=== PATIENT | female | born 1935 | race Hispanic/Latino ===

== ENCOUNTER 2017-04-08 02:13 | Emergency (ER) | payer MEDICARE ==
[2017-04-08 02:27] VITALS: BP 175/93; RESP 18; TEMP 98.3; O2SAT 98
[2017-04-08] MEDS ORDERED: Oxycodone/Acetaminophen 5/325 mg Tab PO STA (03:15)
--- NOTE | 2017-04-08 03:18 | ED PDOC ---
HPI: Chest Pain Time Seen by Provider: 04/08/17 02:44 Chief Complaint (Nursing): Chest Pain Chief Complaint (Provider): Chest Pain History Per: Patient History/Exam Limitations: no limitations Onset/Duration Of Symptoms: Days (x1) Current Symptoms Are (Timing): Still Present Additional Complaint(s): 81 year old female presents to ED with complaints of intermittent left-sided chest pain x1 day and has a past medical history of Hypertension. Notes resolved pain to her left upper back region yesterday. (-) cough, Shortness of breath, or leg swelling. PCP: Wayne Ruelas Past Medical History Reviewed: Historical Data, Nursing Documentation, Vital Signs Vital Signs: Last Vital Signs Temp 98.3 F 04/08/17 02:23 Pulse 90 04/08/17 05:18 Resp 18 04/08/17 02:23 BP 175/93 H 04/08/17 02:23 Pulse Ox 98 04/08/17 05:18 - Medical History PMH: Anemia, Arthritis, HTN, Hypercholesterolemia Denies: Chronic Kidney Disease - Surgical History Surgical History: No Surg Hx - Family History Family History: States: Hypertension - Living Arrangements Living Arrangements: With Family - Social History Current smoker - smoking cessation education provided: No Ex-Smoker (has not smoked in the last 12 months): No Alcohol: None Drugs: Denies - Home Medications Home Medications: Ambulatory Orders Medication Instructions Recorded Atorvastatin [Lipitor] 10 mg PO DAILY 04/14/16 Pilocarpine [Salagen Tab] 5 mg PO QID 04/14/16 Sodium Chloride [Sodium Chloride] 1 gm PO BID 04/14/16 amLODIPine [Norvasc] 5 mg PO DAILY 04/14/16 Valacyclovir HCl [Valacyclovir] 1,000 mg PO Q8 7 Days tablet 04/08/17 traMADol [Ultram] 50 mg PO TID PRN #15 tab 04/08/17 - Allergies Allergies/Adverse Reactions: Allergies Allergy/AdvReac Type Severity Reaction Status Date / Time Penicillins Allergy RASH Verified 08/09/16 12:28 SHONNA Risk Score for UA/NSTEMI - SHONNA Risk Score Age > 64: YES 3 or more CAD Risk Factors: NO Known CAD (Stenosis greater than 50%): NO Aspirin use in past 7 days: NO Severe Angina: NO EKG ST changes greater than 0.5mm: NO Positive Cardiac Marker: NO SHONNA Score: 1 Risk %: 5% Curb-65 Severity Score - CURB-65 Severity Score Confusion: No Respiratory Rate greater than/equal to 30: No Systolic BP <90 or Diastolic BP less than/equal 60mmHg: No Age >64: Yes Curb-65 Score: 1 Percentage 30-day mortality: 2.7% Wells Criteria for PE - Wells Criteria for Pulmonary Embolism Clinical Signs and Symptoms of DVT: No P.E is #1 Diagnosis, or Equally Likely: No Heart Rate >100: No Immobilization at least 3 days;Surgery previous 4 weeks: No Previous, objectively diagnosed PE or DVT: No Hemoptysis: No Malignancy w/treatment within 6 months, or palliative: No Total Score: 0 Review of Systems ROS Statement: Except As Marked, All Systems Reviewed And Found Negative Constitutional: Negative for: Fever Cardiovascular: Positive for: Chest Pain Respiratory: Negative for: Cough, Shortness of Breath Musculoskeletal: Positive for: Back Pain (left upper back (resolved)). Negative for: Other ((-) leg swelling) Physical Exam - Reviewed Nursing Documentation Reviewed: Yes Vital Signs Reviewed: Yes - Physical Exam Appears: Positive for: Non-toxic, No Acute Distress. Negative for: Uncomfortable Head Exam: Positive for: ATRAUMATIC Skin: Positive for: Warm, Dry, Rash (multiple lesions: vesicular and macular pash. Confluent. Present on left sided of chest under breast as well as on left upper back.). Negative for: Normal Color Eye Exam: Positive for: EOMI, Normal appearance, PERRL ENT: Positive for: Normal ENT Inspection Neck: Positive for: Normal, Painless ROM Cardiovascular/Chest: Positive for: Regular Rate, Rhythm. Negative for: Murmur , Tachycardia Respiratory: Positive for: Normal Breath Sounds. Negative for: Respiratory Distress Gastrointestinal/Abdominal: Positive for: Normal Exam, Soft. Negative for: Tenderness Back: Positive for: Normal Inspection Extremity: Positive for: Normal ROM. Negative for: Deformity Neurologic/Psych: Positive for: Alert, Oriented. Negative for: Motor/Sensory Deficits - Laboratory Results Result Diagrams: 04/08/17 03:10 04/08/17 03:10 - ECG ECG: Positive for: Interpreted By Me, Viewed By Me ECG Rhythm: Positive for: Normal QRS, Normal ST Segment, Sinus Rhythm, Nonspecific Changes Rate: 90 O2 Sat by Pulse Oximetry: 98 (RA) Pulse Ox Interpretation: Normal - Radiology X-Ray: Interpreted by Me, Viewed By Me X-Ray Interpretation: No Acute Disease Medical Decision Making Medical Decision Makin Initial impression: chest pain with rash on chest wall DDx: shingles Initial plan: * EKG * Labs * Trop I * CXR Scribe Attestation: Documented by Rachana Hays acting as a scribe for Staci Fitzpatrick MD. Scribe Attestation: All medical record entries made by the Scribe were at my direction and personally dictated by me. I have reviewed the chart and agree that the record accurately reflects my personal performance of the history, physical exam, medical decision making, and the department course for this patient. I have also personally directed, reviewed, and agree with the discharge instructions and disposition. Disposition - Clinical Impression Clinical Impression: Chest pain, Shingles - Patient ED Disposition Is Patient to be Admitted: No Doctor Will See Patient In The: Office Counseled Patient/Family Regarding: Studies Performed, Diagnosis, Need For Followup - Disposition Referrals: Wayne Ruelas MD [Primary Care Provider] - Disposition: Routine/Home Disposition Time: 05:16 Condition: GOOD Additional Instructions: Take your medications as instructed. Follow up with your PCP in 2-3 days. Prescriptions: traMADol [Ultram] 50 mg PO TID PRN #15 tab PRN Reason: Pain, Severe (8-10) Valacyclovir HCl [Valacyclovir] 1,000 mg PO Q8 7 Days tablet Instructions: Chest Pain (ED), Shingles (ED) Forms: [employer] (Bulgarian)
[2017-04-08 03:23] LABS: BASO % 0.3 % (0.0-2.0); EOS # 0.1 K/uL (0.0-0.7); EOS % 0.9 % (0.0-4.0); HEMATOCRIT 33.5 % (34.0-47.0); LYMPH % 15.5 % (20.0-40.0); MEAN CELL VOLUME 91.1 fl (81.0-99.0); MEAN CORPUSCULAR HEMOGLOBIN 31.6 pg (27.0-31.0); MEAN CORPUSCULAR HGB CONC 34.7 g/dL (33.0-37.0); MEAN PLATELET VOLUME 7.8 fl (7.2-11.7); MONO # 0.6 K/uL (0.0-0.8); MONO % 9.7 % (0.0-10.0); NEUT # 4.9 K/uL (1.8-7.0); NEUT % 73.6 % (50.0-75.0); NRBC % 0.1 % (0.0-0.0); RED CELL DISTRIBUTION WIDTH 12.4 % (11.5-14.5); WHITE BLOOD COUNT 6.6 K/uL (4.8-10.8)
[2017-04-08 04:01] VITALS: PULSE 90
[2017-04-08] MEDS ORDERED: DiphenhydrAMINE 50 mg/ml Inj IV STA (04:06)
[2017-04-08 04:36] LABS: BLOOD UREA NITROGEN 18 mg/dl (7-17); CALCIUM 10.1 mg/dL (8.4-10.2); CARBON DIOXIDE 21 mmol/L (22-30); CHLORIDE 93 mmol/L (98-107); GFR AFRICAN-AMERICAN > 60; GLUCOSE,RANDOM 120 mg/dL (65-105); POTASSIUM 4.3 MMOL/L (3.6-5.0); SODIUM 130 mmol/l (132-148)
--- NOTE | 2017-04-08 10:49 | RAD ---
PROCEDURE: CHEST RADIOGRAPH, 1 VIEW HISTORY: chest pain COMPARISON: 06/14/2016. FINDINGS: LUNGS: Clear. PLEURA: No pneumothorax or pleural fluid seen. CARDIOVASCULAR: No radiographic findings to suggest acute or significant cardiovascular disease. OSSEOUS STRUCTURES: No significant abnormalities. VISUALIZED UPPER ABDOMEN: Normal. OTHER FINDINGS: None. IMPRESSION: No active disease. No acute/significant interval changes. Please note: No preliminary report/ innterpretation of this examination provided by emergency department personnel.
--- NOTE | 2017-04-09 09:42 | CARD ---
APPROVED REPORT EKG Measurement Heart [id number] <Conclusion> Normal sinus rhythm Moderate voltage criteria for LVH, may be normal variant Nonspecific ST abnormality Abnormal ECG
== END 2017-04-08 05:36 | disposition home or self-care (01) ==
LOC: H.ER 02:13
DX: R07.9 Chest pain, unspecified (principal); B02.9 Zoster without complications; I10 Essential (primary) hypertension
CPT/HCPCS: 71010; 80048; 84484; 85025; 93005; 96374; 96375; 99283; J1200; J2405; J2930

== ENCOUNTER 2018-04-22 08:18 | Day surgery (SDC) | payer MEDICARE ==
[2018-04-22 09:34] VITALS: BMI 18.8
[2018-04-22] MEDS ORDERED: Tetracaine 0.5% Ophth 2 ML BOTTLE ONE (09:39)
[2018-04-22] MEDS ORDERED: Maxitrol Opht Susp ONE (09:39)
[2018-04-22] MEDS ORDERED: CA CL/K CL/NA CL 500 ML IR ONE (09:40)
[2018-04-22] MEDS ORDERED: STERILE IRRIGATING SOLUTION 30 ML IR ONE (09:40)
[2018-04-22] MEDS ORDERED: EPINEPHrine 1 mg/ml (1:1000) Inj ONE (09:40)
[2018-04-22] MEDS ORDERED: Pilocarpine 1% Opht Soln ONE (09:40)
[2018-04-22] MEDS ORDERED: Lidocaine 1% 20 MG/2 ML PF AMP ONE (09:40)
[2018-04-22] MEDS ORDERED: Chondroitin/Hyaluronate Opth Syringe KIT (0.55 ml-0.5 ml) IO ONE (09:41)
[2018-04-22] MEDS ORDERED: Povidone Iodine 5% Opht SOLUTION ONE (09:41)
[2018-04-22] MEDS ORDERED: STERILE IRRIGATING SOLUTION 15 ML IR ONE (09:41)
[2018-04-22] MEDS ORDERED: Carbachol 0.01% IO ONE (09:41)
[2018-04-22] MEDS ORDERED: Phenylephrine 2.5% Opht Soln OD ONE ×2 (09:42→10:00)
[2018-04-22] MEDS ORDERED: Flurbiprofen 0.03% Opht SOLN OD ONE (09:50)
[2018-04-22] MEDS ORDERED: Tropicamide 1% Opht 150 DROP/15 ML OD ONE (09:50)
[2018-04-22] MEDS ORDERED: Lactated Ringer's 1,000 ML IV ONE ×2 (10:00→11:48)
[2018-04-22 10:59] VITALS: RESP 18
[2018-04-22] MEDS ORDERED: Midazolam 2 MG/2 ML VIAL ONE (11:37)
[2018-04-22 13:59] VITALS: BP 132/89; PULSE 68; TEMP 97.1; O2SAT 99
--- NOTE | 2018-04-23 12:03 | OP ---
PROCEDURE DATE: 04/22/18 SURGEON: JOURDAN BOOTH MD ANESTHESIOLOGIST:MD LAUREL,BERNADETTE Jones/MD NORIS TSANG ANESTHESIA: LOCAL / IV SEDATION PREOPERATIVE DIAGNOSIS: CATARACT RIGHT EYE. POSTOPERATIVE DIAGNOSIS: CATARACT RIGHT EYE. OPERATION: CLEAR CORNEAL PHACOEMULSIFICATION WITH LENS IMPLANT RIGHT EYE. PREPARATION AND PROCEDURE: After the patient was prepped and draped in the usual manner for sterile ophthalmic surgery, local IV sedation was administered; eye seals were applied to the upper and lower lid margins and an adult wire lid speculum was placed within the lids. Under microsurgical control, a two-step clear corneal incision was made into the anterior chamber. The initial incision was perpendicular to the corneal plane. The second incision with the keratome was placed at a 45-degree angle to the first incision. One cc of one percent Xylocaine MPF was instilled into the anterior chamber to achieve proper intraocular anesthesia. At this time, the Viscoelastic was injected into the anterior chamber for protection of the endothelium and for maintenance of the chamber depth. A 360-degree continuous curvilinear capsulorrhexis was performed using a pre-bent 25-gauge needle. Hydrodissection and hydrodelineation were performed using a Lemon cannula and balanced salt solution. Utilizing the tip of the Lemon cannula, the nucleus was rotated freely within the capsular bag. A standard one-handed phacoemulsification was utilized at this time for sculpting and rotating of the nucleus. The nucleus was fragmented in its entirety and aspirated without any consequence. A standard I&A was carried out for the residual cortical material. No residual material was noted within the capsular bag. The posterior capsule was noted to be clear. Additional Viscoelastic was injected into the capsular bag in preparation for lens implantation. After this has been satisfactorily achieved the intraocular lens injected through the corneal incision into the capsular bag. The intraocular lens was manipulated until it was properly oriented and the Viscoelastic was evacuated from the capsular bag and anterior chamber. The anterior chamber was reformed with balanced salt solution. The corneal incision was irrigated with BSS. The intraocular pressure was found to be within normal limits. This terminated the procedure. The speculum and lid drapes were removed. TobraDex ophthalmic suspension and Pilocarpine 1% drops one drop was applied to the eye. POSTOPERATIVE CONDITION: The patient was brought to the Post anesthesia Recovery area with stable vital signs. DJOURDAN ADAM MD
== END 2018-04-22 13:45 | disposition home or self-care (01) ==
LOC: H.OPSURG 08:18
PROVIDERS: ATTEND Ophthalmology
DX: H25.21 Age-related cataract, morgagnian type, right eye (principal); J44.9 Chronic obstructive pulmonary disease, unspecified; E78.5 Hyperlipidemia, unspecified; I10 Essential (primary) hypertension; K21.9 Gastro-esophageal reflux disease without esophagitis; D64.9 Anemia, unspecified
CPT/HCPCS: 66984; J0171; J2250; J7120; V2632

== ENCOUNTER 2018-05-13 09:46 | Day surgery (SDC) | payer MEDICARE ==
[2018-05-13 09:42] VITALS: BMI 18.8
[2018-05-13] MEDS ORDERED: Tropicamide 1% Opht 150 DROP/15 ML LEFTEYE SCH (10:15)
[2018-05-13] MEDS ORDERED: Flurbiprofen 0.03% Opht SOLN OS SCH (10:15)
[2018-05-13] MEDS ORDERED: Phenylephrine 2.5% Opht Soln OD ONE (10:16)
[2018-05-13] MEDS ORDERED: Lactated Ringer's 1,000 ML IV ONE (10:29)
[2018-05-13] MEDS ORDERED: Tropicamide 1% Opht 150 DROP/15 ML OS ONE (10:30)
[2018-05-13] MEDS ORDERED: Maxitrol Opht Susp ONE (11:49)
[2018-05-13] MEDS ORDERED: Tetracaine 0.5% Ophth 2 ML BOTTLE ONE (11:49)
[2018-05-13] MEDS ORDERED: EPINEPHrine 1 mg/ml (1:1000) Inj ONE (11:49)
[2018-05-13] MEDS ORDERED: Lidocaine 1% 20 MG/2 ML PF AMP ONE (11:49)
[2018-05-13] MEDS ORDERED: Chondroitin/Hyaluronate Opth Syringe KIT (0.55 ml-0.5 ml) IO ONE ×2 (11:50→12:49)
[2018-05-13] MEDS ORDERED: STERILE IRRIGATING SOLUTION 15 ML IR ONE (11:50)
[2018-05-13] MEDS ORDERED: CA CL/K CL/NA CL 500 ML IR ONE (11:50)
[2018-05-13] MEDS ORDERED: Pilocarpine 1% Opht Soln ONE (11:50)
[2018-05-13] MEDS ORDERED: STERILE IRRIGATING SOLUTION 30 ML IR ONE (11:50)
[2018-05-13] MEDS ORDERED: Povidone Iodine 5% Opht SOLUTION ONE (11:51)
[2018-05-13] MEDS ORDERED: Carbachol 0.01% IO ONE ×2 (11:51→12:49)
[2018-05-13] MEDS ORDERED: Midazolam 2 MG/2 ML VIAL ONE ×2 (12:06→12:52)
[2018-05-13] MEDS ORDERED: BSS 15 ML SOL IR ONE (12:49)
[2018-05-13] MEDS ORDERED: Lidocaine 1% Inj (20ml) TP ONE (12:49)
[2018-05-13] MEDS ORDERED: Neomycin/Polymyxin B Sulfates Sol for Irrigation 1 ml Amp IR ONE (12:49)
[2018-05-13] MEDS ORDERED: Pilocarpine 1% Opht Soln OD ONE (12:49)
[2018-05-13] MEDS ORDERED: Tetracaine 0.5% Ophth 2 ML BOTTLE OU ONE (12:49)
[2018-05-13] MEDS ORDERED: EPINEPHrine 1 mg/ml (1:1000) Inj IV ONE (12:49)
[2018-05-13] MEDS ORDERED: Povidone Iodine 5% Opht SOLUTION OU ONE (12:49)
[2018-05-13 13:45] VITALS: RESP 18
[2018-05-13 14:05] VITALS: O2SAT 100
[2018-05-13 15:01] VITALS: BP 148/78; PULSE 72; TEMP 97.6
--- NOTE | 2018-05-14 07:24 | OP ---
PROCEDURE DATE: 05/13/2018 SURGEON: JOURDAN BOOTH MD ANESTHESIOLOGIST: NORIS TSANG MD ANESTHESIA: LOCAL / IV SEDATION PREOPERATIVE DIAGNOSIS: CATARACT LEFT EYE. POSTOPERATIVE DIAGNOSIS: CATARACT LEFT EYE. OPERATION: CLEAR CORNEAL PHACOEMULSIFICATION WITH LENS IMPLANT LEFT EYE. PREPARATION AND PROCEDURE: After the patient was prepped and draped in the usual manner for sterile ophthalmic surgery, local IV sedation was administered; eye seals were applied to the upper and lower lid margins and an adult wire lid speculum was placed within the lids. Under microsurgical control, a two-step clear corneal incision was made into the anterior chamber. The initial incision was perpendicular to the corneal plane. The second incision with the keratome was placed at a 45-degree angle to the first incision. One cc of one percent Xylocaine MPF was instilled into the anterior chamber to achieve proper intraocular anesthesia. At this time, the Viscoelastic was injected into the anterior chamber for protection of the endothelium and for maintenance of the chamber depth. A 360-degree continuous curvilinear capsulorrhexis was performed using a pre-bent 25-gauge needle. Hydrodissection and hydrodelineation were performed using a Lemon cannula and balanced salt solution. Utilizing the tip of the Lemon cannula, the nucleus was rotated freely within the capsular bag. A standard one-handed phacoemulsification was utilized at this time for sculpting and rotating of the nucleus. The nucleus was fragmented in its entirety and aspirated without any consequence. A standard I&A was carried out for the residual cortical material. No residual material was noted within the capsular bag. The posterior capsule was noted to be clear. Additional Viscoelastic was injected into the capsular bag in preparation for lens implantation. After this has been satisfactorily achieved the intraocular lens injected through the corneal incision into the capsular bag. The intraocular lens was manipulated until it was properly oriented and the Viscoelastic was evacuated from the capsular bag and anterior chamber. The anterior chamber was reformed with balanced salt solution. The corneal incision was irrigated with BSS. The intraocular pressure was found to be within normal limits. This terminated the procedure. The speculum and lid drapes were removed. TobraDex ophthalmic suspension and Pilocarpine 1% drops one drop was applied to the eye. POSTOPERATIVE CONDITION: The patient was brought to the Post anesthesia Recovery area with stable vital signs. DJOURDAN ADAM MD
== END 2018-05-13 15:15 | disposition home or self-care (01) ==
LOC: EDBD → H.OPSURG 09:46 → EDUNIT# 10:00 → H.OPSURG 15:15
PROVIDERS: ATTEND Ophthalmology
DX: H25.812 Combined forms of age-related cataract, left eye (principal); J44.9 Chronic obstructive pulmonary disease, unspecified; E78.5 Hyperlipidemia, unspecified; I10 Essential (primary) hypertension; K21.9 Gastro-esophageal reflux disease without esophagitis
CPT/HCPCS: 66984; J0171; J2250; J7120; V2632

== ENCOUNTER 2018-10-16 00:05 | Observation (INO) | payer MEDICARE ==
[2018-10-16 00:24] VITALS: BMI 14.6
[2018-10-16] MEDS ORDERED: Sodium Chloride 0.9% 1,000 ML IV STA (01:18)
[2018-10-16 01:42] LABS: BASO % 0.4 % (0.0-2.0); EOS % 0.1 % (0.0-4.0); LYMPH # 0.7 K/uL (1.0-4.3); LYMPH % 8.1 % (20.0-40.0); MEAN CELL VOLUME 87.2 fl (81.0-99.0); MEAN CORPUSCULAR HEMOGLOBIN 29.1 pg (27.0-31.0); MEAN CORPUSCULAR HGB CONC 33.3 g/dL (33.0-37.0); MEAN PLATELET VOLUME 7.4 fl (7.2-11.7); MONO # 0.4 K/uL (0.0-0.8); MONO % 4.4 % (0.0-10.0); NEUT # 7.6 K/uL (1.8-7.0); PLATELET COUNT 413 K/uL (130-400); RBC 2.76 Mil/uL (3.80-5.20); WHITE BLOOD COUNT 8.7 K/uL (4.8-10.8)
[2018-10-16 01:49] LABS: BLOOD UREA NITROGEN 20 mg/dl (7-17); CALCIUM 8.4 mg/dL (8.4-10.2); GFR NON-AFRICAN AMERICAN > 60
[2018-10-16 02:31] LABS: ANISOCYTOSIS SLIGHT; BANDS 1 % (0-2); LYMPHOCYTE 10 % (20-50); MONOCYTE 7 % (0-10); NEUTROPHIL 82 % (42-75); PLATELET ESTIMATE NORMAL (NORMAL); POIKILOCYTOSIS SLIGHT; TOTAL CELLS COUNTED 100
[2018-10-16] MEDS ORDERED: Potassium Chloride 20 mEq ER Tab PO ONE ×2 (02:46→03:05)
[2018-10-16] MEDS ORDERED: Potassium CL 10 MEQ/50 ML 50 ML ONE ×2 (03:05→04:22)
[2018-10-16] MEDS: Potassium CL 10 MEQ/50 ML 50 ML IVPB SCH ×2 (03:18→04:27)
--- NOTE | 2018-10-16 03:43 | CP.PCM.HP ---
<Caroline Calhoun - Last Filed: 10/16/18 03:51> History of Present Illness - History of Present Illness History of Present Illness: This is 83 y/o F with PMH of HTN/HLD, dementia, chronic anemia and hyponatremia admitted to [facility] for eval and treatment of hypokalemia and lightheadedness. Patient presents to ER c/o 2 days hx of intermittent nausea and dizziness/Lightheadedness. Son reports progressively worsening dementia, and Poor PO intake. Denies any vomiting, fever, diarrhea, blurred vision, ringing in ears, chest pain, SOB, abdominal pain, dysuria or weakness. PMD: Kozel PMH: HTN/HLD, dementia, chronic anemia and hyponatremia SHx: None Allergies: PCN Medications: As per med rec Family Hx: reviewed, no relevant findings Social Hx: Lives tobacco EtOH Surrogate Decision Maker: david Durbin ROS: As per HPI ER Course: VS: Afebrile, 172/76, HR 70, spo2 97% CBC: no wbc, h/h 02/28 BMP: K+ 2.8 Present on Admission - Present on Admission Any Indicators Present on Admission: No Review of Systems - Constitutional Constitutional: absent: Daytime Sleepiness, Lethargy, Weight Loss, Weakness - EENT Eyes: absent: Blurred Vision Ears: Dizziness. absent: Ear Pain, Tinnitus, Disequilibrium Nose/Mouth/Throat: absent: Nasal Congestion, Dysphagia, Sore Throat - Breasts Breasts: absent: Skin Changes - Cardiovascular Cardiovascular: absent: Chest Pain - Respiratory Respiratory: absent: Cough, Dyspnea, Hemoptysis - Gastrointestinal Gastrointestinal: Nausea. absent: Abdominal Pain, Diarrhea, Heartburn, Vomiting - Genitourinary Genitourinary: absent: Change in Urinary Stream, Dysuria - Musculoskeletal Musculoskeletal: absent: Muscle Cramps, Muscle Weakness, Neck Pain, Numbness, Stiffness, Tingling - Integumentary Integumentary: absent: Bleeding Lesions - Neurological Neurological: Dizziness. absent: Sensory Deficit, Syncope, Tingling, Tremor, Vertigo, Weakness, Other Visual Disturbances - Psychiatric Psychiatric: absent: Anxiety, Depression - Endocrine Endocrine: absent: Change in Body Appearance - Hematologic/Lymphatic Hematologic: absent: Easy Bleeding Past Patient History - Past Medical History & Family History Past Medical History?: Yes - Past Social History Smoking Status: Never Smoked - CARDIAC Hx Cardiac Disorders: Yes Hx Hypercholesterolemia: Yes Hx Hypertension: Yes - PULMONARY Hx Respiratory Disorders: No - NEUROLOGICAL Hx Syncope: Yes Other/Comment: cognitive decline - HEENT Hx HEENT Problems: No - RENAL Hx Chronic Kidney Disease: No - ENDOCRINE/METABOLIC Hx Endocrine Disorders: Yes Other/Comment: Hx hyponatremia - HEMATOLOGICAL/ONCOLOGICAL Hx Anemia: Yes - INTEGUMENTARY Other/Comment: Dystrophic nails - MUSCULOSKELETAL/RHEUMATOLOGICAL Hx Arthritis: Yes Hx Falls: No Other/Comment: Sicca Syndrome - GASTROINTESTINAL Hx Colitis: Yes Hx Gastroesophageal Reflux: Yes - GENITOURINARY/GYNECOLOGICAL Hx Genitourinary Disorders: No - PSYCHIATRIC Hx Psychophysiologic Disorder: No Hx Substance Use: No - SURGICAL HISTORY Hx Surgeries: No - ANESTHESIA Hx Anesthesia: No Hx Anesthesia Reactions: No Meds Allergies/Adverse Reactions: Allergies Allergy/AdvReac Type Severity Reaction Status Date / Time codeine Allergy VOMITING Verified 10/16/18 00:23 Penicillins Allergy RASH Verified 10/16/18 00:23 Physical Exam - Constitutional Appears: No Acute Distress - Head Exam Head Exam: ATRAUMATIC, NORMAL INSPECTION, NORMOCEPHALIC - Eye Exam Eye Exam: EOMI, Normal appearance, PERRL Pupil Exam: NORMAL ACCOMODATION - ENT Exam ENT Exam: Mucous Membranes Moist - Neck Exam Neck exam: Positive for: Normal Inspection - Respiratory Exam Respiratory Exam: Clear to Auscultation Bilateral, NORMAL BREATHING PATTERN. absent: Rhonchi, Wheezes - Cardiovascular Exam Cardiovascular Exam: REGULAR RHYTHM, +S1, +S2 - GI/Abdominal Exam GI & Abdominal Exam: Normal Bowel Sounds, Soft. absent: Tenderness - Extremities Exam Extremities exam: Positive for: normal inspection, pedal pulses present. Negative for: tenderness - Back Exam Back exam: NORMAL INSPECTION. absent: CVA tenderness (L), CVA tenderness (R) - Neurological Exam Neurological exam: Alert, CN II-XII Intact, Oriented x3, Reflexes Normal - Psychiatric Exam Psychiatric exam: Normal Affect - Skin Skin Exam: Dry, Intact, Normal Color, Warm Results - Vital Signs Recent Vital Signs: Last Vital Signs Temp 98.3 F 10/16/18 00:23 Pulse 70 10/16/18 00:23 Resp 18 10/16/18 00:23 BP 172/76 H 10/16/18 00:23 Pulse Ox 97 10/16/18 00:23 - Labs Result Diagrams: 10/16/18 01:30 04/11/19 01:30 Labs: Laboratory Results - last 24 hr 10/16/18 10/16/18 10/16/18 00:33 01:30 01:30 WBC 8.7 RBC 2.76 L Hgb 8.0 L D Hct 24.1 L MCV 87.2 D MCH 29.1 MCHC 33.3 RDW 14.0 Plt Count 413 H D MPV 7.4 Neut % (Auto) 87.0 H Lymph % (Auto) 8.1 L [place] % (Auto) 4.4 Eos % (Auto) 0.1 Baso % (Auto) 0.4 Neut # (Auto) 7.6 H Lymph # (Auto) 0.7 L [place] # (Auto) 0.4 Eos # (Auto) 0.0 Baso # (Auto) 0.0 Neutrophils % (Manual) 82 H Band Neutrophils % 1 Lymphocytes % (Manual) 10 L Monocytes % (Manual) 7 Platelet Estimate Normal Poikilocytosis (manual Slight Anisocytosis (manual) Slight Sodium 138 Potassium 2.8 L Chloride 102 Carbon Dioxide 28 Anion Gap 11 BUN 20 H Creatinine 0.6 L Est GFR ( Amer) > 60 Est GFR (Non-Af Amer) > 60 POC Glucose (mg/dL) 175 H Random Glucose 145 H Calcium 8.4 Phosphorus 3.0 Magnesium 1.8 Assessment & Plan - Assessment and Plan (Free Text) Assessment: A/P: 83 y/o F with PMH of HTN/HLD, dementia, chronic anemia and hyponatremia admitted to [facility] for eval and treatment of hypokalemia and lightheadedness. Hypokalemia, Acute - 10mg IV KCL x 2 - 40mg PO KCL - Repeat BMP in morning - Replace as needed Lightheadedness, acute, 2/2 dehydration and poor PO intake - C/w IVF - Neuro checks - F/u EKG HTN, Chronic - C/w home medications as ordered HLD, Chronic, Controlled - C/w home meds DVT PPX - SCD/Lovenox SC daily Case discussed with Dr. Carbone <Eliseo Carbone - Last Filed: 10/16/18 04:32> Results - Vital Signs Recent Vital Signs: Last Vital Signs Temp 98.3 F 10/16/18 00:23 Pulse 70 10/16/18 00:23 Resp 18 10/16/18 00:23 BP 172/76 H 10/16/18 00:23 Pulse Ox 97 10/16/18 04:18 - Labs Result Diagrams: 10/16/18 01:30 10/16/18 01:30 Labs: Laboratory Results - last 24 hr 10/16/18 10/16/18 10/16/18 00:33 01:30 01:30 WBC 8.7 RBC 2.76 L Hgb 8.0 L D Hct 24.1 L MCV 87.2 D MCH 29.1 MCHC 33.3 RDW 14.0 Plt Count 413 H D MPV 7.4 Neut % (Auto) 87.0 H Lymph % (Auto) 8.1 L [place] % (Auto) 4.4 Eos % (Auto) 0.1 Baso % (Auto) 0.4 Neut # (Auto) 7.6 H Lymph # (Auto) 0.7 L [place] # (Auto) 0.4 Eos # (Auto) 0.0 Baso # (Auto) 0.0 Neutrophils % (Manual) 82 H Band Neutrophils % 1 Lymphocytes % (Manual) 10 L Monocytes % (Manual) 7 Platelet Estimate Normal Poikilocytosis (manual Slight Anisocytosis (manual) Slight Sodium 138 Potassium 2.8 L Chloride 102 Carbon Dioxide 28 Anion Gap 11 BUN 20 H Creatinine 0.6 L Est GFR ( Amer) > 60 Est GFR (Non-Af Amer) > 60 POC Glucose (mg/dL) 175 H Random Glucose 145 H Calcium 8.4 Phosphorus 3.0 Magnesium 1.8 Assessment & Plan - Assessment and Plan (Free Text) Plan: History as documented by resident was reviewed with patient and resident. I performed the rojas elements of exam and agree with the above findings. Diagnostics were reviewed and medical decision making and plan of care performed by me: 83 y/o CF with PMH of HTN/HLD, dementia, chronic anemia and hyponatremia p/w mal aise, nausea, poor appetite and feeling lightheaded. Was found to have K of 2.8. On exam looks dry, S1/S2, RRR, lungs clear b/l. Of note her anemia has significantly worsened as compared to last April (Hb 10-11->8). Will give IVF and K supplement and will monitor K closely. Needs close follow up and out patient work up for her anemia.
--- NOTE | 2018-10-16 04:10 | ED PDOC ---
HPI:Nausea, Vomiting, Diarrhea Time Seen by Provider: 10/16/18 00:46 Chief Complaint (Nursing): GI Problem Chief Complaint (Provider): Nausea, Dizziness History Per: Patient History/Exam Limitations: no limitations Onset/Duration Of Symptoms: Days (x 3) Current Symptoms Are (Timing): Still Present Associated Symptoms: Nausea, Other (dizziness) Additional Complaint(s): 83 year old female with a history of HTN, high cholesterol and hyponatremia for evaluation of nausea and dizziness for the past few days. Patient reports she recently has been forgetting to eat and feels nauseous. Prior to arrival, she visited her neighbor's house and they called EMS. Patient denies headache, chest pain and shortness of breath. PMD: Dr. Ruelas Past Medical History Reviewed: Historical Data, Nursing Documentation, Vital Signs Vital Signs: Last Vital Signs Temp 98.3 F 10/16/18 00:23 Pulse 70 10/16/18 00:23 Resp 18 10/16/18 00:23 BP 172/76 H 10/16/18 00:23 Pulse Ox 97 10/16/18 00:23 - Medical History PMH: Anemia, Arthritis, HTN, Hypercholesterolemia Denies: Chronic Kidney Disease - Surgical History Surgical History: No Surg Hx - Family History Family History: States: Hypertension - Home Medications Home Medications: Ambulatory Orders Medication Instructions Recorded Atorvastatin [Lipitor] 10 mg PO DAILY 04/14/16 Pilocarpine [Salagen Tab] 5 mg PO QID 04/14/16 Sodium Chloride 1 gm PO BID 04/14/16 amLODIPine [Norvasc] 5 mg PO DAILY 04/14/16 - Allergies Allergies/Adverse Reactions: Allergies Allergy/AdvReac Type Severity Reaction Status Date / Time codeine Allergy VOMITING Verified 10/16/18 00:23 Penicillins Allergy RASH Verified 10/16/18 00:23 Review of Systems ROS Statement: Except As Marked, All Systems Reviewed And Found Negative Constitutional: Negative for: Fever Cardiovascular: Negative for: Chest Pain Respiratory: Negative for: Shortness of Breath Gastrointestinal: Positive for: Nausea. Negative for: Vomiting Neurological: Positive for: Dizziness. Negative for: Headache Physical Exam - Reviewed Nursing Documentation Reviewed: Yes Vital Signs Reviewed: Yes - Physical Exam Appears: Positive for: No Acute Distress (cachectic and weak appearing) Head Exam: Positive for: ATRAUMATIC, NORMOCEPHALIC Skin: Positive for: Warm, Dry. Negative for: Rash Eye Exam: Positive for: EOMI, Normal appearance, PERRL Neck: Positive for: Normal, Painless ROM, Supple Cardiovascular/Chest: Positive for: Regular Rate, Rhythm. Negative for: Murmur Respiratory: Positive for: Normal Breath Sounds. Negative for: Respiratory Distress Gastrointestinal/Abdominal: Positive for: Normal Exam, Soft. Negative for: Tenderness Back: Positive for: Normal Inspection. Negative for: L CVA Tenderness, R CVA Tenderness Extremity: Positive for: Normal ROM (x 4). Negative for: Deformity Neurological/Psych: Positive for: Awake, Alert, Normal Tone, Oriented. Negative for: Motor/Sensory Deficits - Laboratory Results Result Diagrams: 10/16/18 01:30 10/16/18 01:30 - ECG O2 Sat by Pulse Oximetry: 97 (RA) Pulse Ox Interpretation: Normal Medical Decision Making Medical Decision Makin:18 A&P: nausea and dizziness possibly secondary to dehydration or malnutrition Workup for electrolyte abnormality Orders: --BMP --CBC --Mag --Phos --NS IV 1,000 mls 03:00 Labs reveal hypokalemia. Will correct and place patient is obs for further evaluation. Dr. Carbone aware of patient Scribe Attestation: Documented by Dorita Bass, acting as a scribe for Main Rivera MD Provider Scribe Attestation: All medical record entries made by the Scribe were at my direction and personally dictated by me. I have reviewed the chart and agree that the record accurately reflects my personal performance of the history, physical exam, me dical decision making, and the department course for this patient. I have also personally directed, reviewed, and agree with the discharge instructions and disposition. Disposition - Clinical Impression Clinical Impression: Hypokalemia, Malnutrition - Patient ED Disposition Is Patient to be Admitted: Yes - Disposition Disposition Time: 03:30 Condition: FAIR - Pt Status Changed To: Hospital Disposition Of: Observation
[2018-10-16 08:36] LABS: BLOOD UREA NITROGEN 14 mg/dl (7-17); CALCIUM 8.3 mg/dL (8.4-10.2); GFR NON-AFRICAN AMERICAN > 60
[2018-10-16] MEDS ORDERED: Potassium Chloride 20 mEq/15 ml LIQ UD PO ONE (09:24)
--- NOTE | 2018-10-16 23:06 | CARD ---
APPROVED REPORT Date of service: 10/16/2018 EKG Measurement Heart [id number] [id number] <Conclusion> Normal sinus rhythm Minimal voltage criteria for LVH, may be normal variant Prolonged QT Abnormal ECG
[2018-10-17 06:23] LABS: HEMOGLOBIN 8.3 g/dL (12.0-16.0); MEAN CELL VOLUME 87.1 fl (81.0-99.0); MEAN CORPUSCULAR HEMOGLOBIN 28.7 pg (27.0-31.0); RBC 2.89 Mil/uL (3.80-5.20); RED CELL DISTRIBUTION WIDTH 14.1 % (11.5-14.5); WHITE BLOOD COUNT 7.4 K/uL (4.8-10.8)
[2018-10-17 06:44] LABS: ALB/GLOB RATIO 0.8 (1.0-2.1); ALBUMIN 3.2 g/dL (3.5-5.0); ALT/SGPT 23 U/L (9-52); AST/SGOT 20 U/L (14-36); BLOOD UREA NITROGEN 12 mg/dl (7-17); CALCIUM 8.9 mg/dL (8.4-10.2); GFR NON-AFRICAN AMERICAN > 60
[2018-10-17 08:02] VITALS: BP 162/71; PULSE 72; RESP 19; TEMP 98.2; O2SAT 99
[2018-10-17] MEDS ORDERED: Enoxaparin 40 mg Syringe SC SCH (09:00)
--- NOTE | 2018-10-17 12:10 | CP.PCM.DIS ---
<Anh Myrick - Last Filed: 10/17/18 12:13> Provider - Provider Date of Admission: 10/16/18 03:02 Attending physician: Eliseo Carbone MD Primary care physician: Wayne Ruelas MD Consults: 10/16/18 17:18 Physician Consult Routine Comment: Consulting Provider: Wayne Ruelas Consulting Physician: Wayne Ruelas Reason for Consult: PMD Time Spent in preparation of Discharge (in minutes): 20 Hospital Course - Lab Results Lab Results: Most Recent Lab Values WBC 7.4 K/uL (4.8-10.8) 10/17/18 05:45 RBC 2.89 Mil/uL (3.80-5.20) L 10/17/18 05:45 Hgb 8.3 g/dL (12.0-16.0) L 10/17/18 05:45 Hct 25.2 % (34.0-47.0) L 10/17/18 05:45 MCV 87.1 fl (81.0-99.0) 10/17/18 05:45 MCH 28.7 pg (27.0-31.0) 10/17/18 05:45 MCHC 33.0 g/dL (33.0-37.0) 10/17/18 05:45 RDW 14.1 % (11.5-14.5) 10/17/18 05:45 Plt Count 425 K/uL (130-400) H 10/17/18 05:45 MPV 7.4 fl (7.2-11.7) 10/16/18 01:30 Neut % (Auto) 87.0 % (50.0-75.0) H 10/16/18 01:30 Lymph % (Auto) 8.1 % (20.0-40.0) L 10/16/18 01:30 Ceiba % (Auto) 4.4 % (0.0-10.0) 10/16/18 01:30 Eos % (Auto) 0.1 % (0.0-4.0) 10/16/18 01:30 Baso % (Auto) 0.4 % (0.0-2.0) 10/16/18 01:30 Neut # (Auto) 7.6 K/uL (1.8-7.0) H 10/16/18 01:30 Lymph # (Auto) 0.7 K/uL (1.0-4.3) L 10/16/18 01:30 Ceiba # (Auto) 0.4 K/uL (0.0-0.8) 10/16/18 01:30 Eos # (Auto) 0.0 K/uL (0.0-0.7) 10/16/18 01:30 Baso # (Auto) 0.0 K/uL (0.0-0.2) 10/16/18 01:30 Neutrophils % (Manual) 82 % (42-75) H 10/16/18 01:30 Band Neutrophils % 1 % (0-2) 10/16/18 01:30 Lymphocytes % (Manual) 10 % (20-50) L 10/16/18 01:30 Monocytes % (Manual) 7 % (0-10) 10/16/18 01:30 Platelet Estimate Normal (NORMAL) 10/16/18 01:30 Poikilocytosis (manual Slight 10/16/18 01:30 Anisocytosis (manual) Slight 10/16/18 01:30 Retic Count 1.0 % (0.5-1.5) 10/17/18 08:35 Sodium 138 mmol/l (132-148) 10/17/18 05:45 Potassium 3.9 MMOL/L (3.6-5.0) 10/17/18 05:45 Chloride 105 mmol/L (98-107) 10/17/18 05:45 Carbon Dioxide 27 mmol/L (22-30) 10/17/18 05:45 Anion Gap 10 (10-20) 10/17/18 05:45 BUN 12 mg/dl (7-17) 10/17/18 05:45 Creatinine 0.7 mg/dl (0.7-1.2) 10/17/18 05:45 Est GFR ( Amer) > 60 10/17/18 05:45 Est GFR (Non-Af Amer) > 60 10/17/18 05:45 POC Glucose (mg/dL) 175 mg/dL (65-110) H 10/16/18 00:33 Random Glucose 87 mg/dL (65-105) 10/17/18 05:45 Calcium 8.9 mg/dL (8.4-10.2) 10/17/18 05:45 Phosphorus 3.0 mg/dl (2.5-4.5) 10/16/18 01:30 Magnesium 1.8 MG/DL (1.6-2.3) 10/16/18 01:30 Total Bilirubin 0.3 mg/dl (0.2-1.3) 10/17/18 05:45 AST 20 U/L (14-36) 10/17/18 05:45 ALT 23 U/L (9-52) 10/17/18 05:45 Alkaline Phosphatase 84 U/L (38-126) 10/17/18 05:45 Total Protein 7.4 G/DL (6.3-8.2) 10/17/18 05:45 Albumin 3.2 g/dL (3.5-5.0) L 10/17/18 05:45 Globulin 4.2 gm/dL (2.2-3.9) H 10/17/18 05:45 Albumin/Globulin Ratio 0.8 (1.0-2.1) L 10/17/18 05:45 - Hospital Course Hospital Course: 83 y/o F with PMH of HTN/HLD, dementia, chronic anemia and hyponatremia admitted to [facility] for eval and treatment of hypokalemia and lightheadedness. Was treated with IVF and replacement of electrolyte abnormalities. Clinically improved and medically cleared for discharge to home. Recommend f/u with Dr Ruelas within 1 week and continue home medication regimen. Discharge Exam - Head Exam Head Exam: ATRAUMATIC, NORMOCEPHALIC - Eye Exam Eye Exam: Normal appearance - Respiratory Exam Respiratory Exam: Clear to PA & Lateral, NORMAL BREATHING PATTERN, UNREMARKABLE. absent: Respiratory Distress - Cardiovascular Exam Cardiovascular Exam: REGULAR RHYTHM - GI/Abdominal Exam GI & Abdominal Exam: Soft, Unremarkable. absent: Tenderness - Back Exam Back exam: absent: CVA tenderness (L), CVA tenderness (R) - Neurological Exam Neurological exam: Alert, Oriented x3 - Psychiatric Exam Psychiatric exam: Normal Affect, Normal Mood - Skin Skin Exam: Dry, Intact, Normal Color, Warm Discharge Plan - Discharge Medications Prescriptions: amLODIPine [Norvasc] 5 mg PO DAILY #30 tab Atorvastatin [Lipitor] 10 mg PO DAILY #30 tab Ferrous Sulfate [Feosol] 325 mg PO BID #60 tab Pilocarpine [Salagen Tab] 5 mg PO QID 30 Days - Follow Up Plan Condition: FAIR Disposition: HOME/ ROUTINE Additional Instructions: Follow-up with PMD within 1 week Referrals: Wayne Ruelas MD [Primary Care Provider] - <aCdy Rebollar - Last Filed: 10/17/18 15:23> Provider - Provider Date of Admission: 10/16/18 03:02 Attending physician: Eliseo Carbone MD Primary care physician: Wayne Ruelas MD Consults: 10/16/18 17:18 Physician Consult Routine Comment: Consulting Provider: Wayne Ruelas Consulting Physician: Wayne Ruelas Reason for Consult: PMD Hospital Course - Lab Results Lab Results: Most Recent Lab Values WBC 7.4 K/uL (4.8-10.8) 10/17/18 05:45 RBC 2.89 Mil/uL (3.80-5.20) L 10/17/18 05:45 Hgb 8.3 g/dL (12.0-16.0) L 10/17/18 05:45 Hct 25.2 % (34.0-47.0) L 10/17/18 05:45 MCV 87.1 fl (81.0-99.0) 10/17/18 05:45 MCH 28.7 pg (27.0-31.0) 10/17/18 05:45 MCHC 33.0 g/dL (33.0-37.0) 10/17/18 05:45 RDW 14.1 % (11.5-14.5) 10/17/18 05:45 Plt Count 425 K/uL (130-400) H 10/17/18 05:45 MPV 7.4 fl (7.2-11.7) 10/16/18 01:30 Neut % (Auto) 87.0 % (50.0-75.0) H 10/16/18 01:30 Lymph % (Auto) 8.1 % (20.0-40.0) L 10/16/18 01:30 Ceiba % (Auto) 4.4 % (0.0-10.0) 10/16/18 01:30 Eos % (Auto) 0.1 % (0.0-4.0) 10/16/18 01:30 Baso % (Auto) 0.4 % (0.0-2.0) 10/16/18 01:30 Neut # (Auto) 7.6 K/uL (1.8-7.0) H 10/16/18 01:30 Lymph # (Auto) 0.7 K/uL (1.0-4.3) L 10/16/18 01:30 Ceiba # (Auto) 0.4 K/uL (0.0-0.8) 10/16/18 01:30 Eos # (Auto) 0.0 K/uL (0.0-0.7) 10/16/18 01:30 Baso # (Auto) 0.0 K/uL (0.0-0.2) 10/16/18 01:30 Neutrophils % (Manual) 82 % (42-75) H 10/16/18 01:30 Band Neutrophils % 1 % (0-2) 10/16/18 01:30 Lymphocytes % (Manual) 10 % (20-50) L 10/16/18 01:30 Monocytes % (Manual) 7 % (0-10) 10/16/18 01:30 Platelet Estimate Normal (NORMAL) 10/16/18 01:30 Poikilocytosis (manual Slight 10/16/18 01:30 Anisocytosis (manual) Slight 10/16/18 01:30 Retic Count 1.0 % (0.5-1.5) 10/17/18 08:35 Sodium 138 mmol/l (132-148) 10/17/18 05:45 Potassium 3.9 MMOL/L (3.6-5.0) 10/17/18 05:45 Chloride 105 mmol/L (98-107) 10/17/18 05:45 Carbon Dioxide 27 mmol/L (22-30) 10/17/18 05:45 Anion Gap 10 (10-20) 10/17/18 05:45 BUN 12 mg/dl (7-17) 10/17/18 05:45 Creatinine 0.7 mg/dl (0.7-1.2) 10/17/18 05:45 Est GFR ( Amer) > 60 10/17/18 05:45 Est GFR (Non-Af Amer) > 60 10/17/18 05:45 POC Glucose (mg/dL) 175 mg/dL (65-110) H 10/16/18 00:33 Random Glucose 87 mg/dL (65-105) 10/17/18 05:45 Calcium 8.9 mg/dL (8.4-10.2) 10/17/18 05:45 Phosphorus 3.0 mg/dl (2.5-4.5) 10/16/18 01:30 Magnesium 1.8 MG/DL (1.6-2.3) 10/16/18 01:30 Iron 22 ug/dL (37-170) L 10/17/18 08:35 TIBC 232 ug/dL (250-450) L 10/17/18 08:35 % Saturation 9 % (20-55) L 10/17/18 08:35 Ferritin 408.0 ng/Ml (11.1-264.0) H 10/17/18 08:35 Total Bilirubin 0.3 mg/dl (0.2-1.3) 10/17/18 05:45 AST 20 U/L (14-36) 10/17/18 05:45 ALT 23 U/L (9-52) 10/17/18 05:45 Alkaline Phosphatase 84 U/L (38-126) 10/17/18 05:45 Total Protein 7.4 G/DL (6.3-8.2) 10/17/18 05:45 Albumin 3.2 g/dL (3.5-5.0) L 10/17/18 05:45 Globulin 4.2 gm/dL (2.2-3.9) H 10/17/18 05:45 Albumin/Globulin Ratio 0.8 (1.0-2.1) L 10/17/18 05:45 Vitamin B12 974 pg/mL (239-931) H 10/17/18 08:35 Attending/Attestation - Attestation I have personally seen and examined this patient.: Yes I have fully participated in the care of the patient.: Yes I have reviewed all pertinent clinical information, including history, physical exam and plan: Yes Notes (Text): Nausea/Vomiting, resolved Hypokalemia prob due to vomiting Chronic Iron Deficiency Anemia HTN - Pt's nausea resolved and she has been tolerating PO diet - feels fine and wants to go home , refused any further inpatient work up. - Troponion x 3 neg - received IV Venofer, cont PO Ferrous sulfate - PT consulted - no PT needed -ff up with PMD Dr Ruelas - further anemia work up as outpt - pt has always been anemic for many years , denies melena, no hematochezia, no hematemesis -advised to have EGD/Colonoscopy as outpt
[2018-10-17 13:12] LABS: IRON 22 ug/dL (37-170)
[2018-10-17 13:21] LABS: % IRON SATURATION 9 % (20-55); TOTAL IRON BINDING CAPACITY 232 ug/dL (250-450)
[2018-10-17 21:38] LABS: FOLATE 16.3 ng/mL
== END 2018-10-17 13:36 | disposition home or self-care (01) ==
LOC: H.ER 00:05 → H.ERHOLD 03:02 → H.MEDSURG1 04:49
PROVIDERS: ADMIT Internal Medicine; ATTEND Internal Medicine
DX: E87.6 Hypokalemia (principal); E86.0 Dehydration; R11.10 Vomiting, unspecified; D50.9 Iron deficiency anemia, unspecified; D63.8 Anemia in other chronic diseases classified elsewhere; E46 Unspecified protein-calorie malnutrition; F03.90 Unspecified dementia, unspecified severity, without behavioral disturbance, psychotic disturbance, mood disturbance, and anxiety; K21.9 Gastro-esophageal reflux disease without esophagitis; I10 Essential (primary) hypertension; E78.5 Hyperlipidemia, unspecified; E78.00 Pure hypercholesterolemia, unspecified; M19.90 Unspecified osteoarthritis, unspecified site; Z88.6 Allergy status to analgesic agent; Z88.0 Allergy status to penicillin
CPT/HCPCS: 36415; 80048; 80053; 82607; 82728; 82746; 82948; 83540; 83550; 83735; 84100; 85025; 85027; 85044; 93005; 96361; 96374; 97162; 99284; G0378; G8978; G8979; G8980; J1756; J3480; J7030